=== PATIENT | female | born 1960 | race Caucasian/White ===

== ENCOUNTER → 2016-07-24 | Outpatient (CLI) | payer OTHER ==
--- NOTE | 2016-07-24 14:53 | DX ---
Thoracic Spine, 4 upright views including lateral neutral flexion and extension History: Follow-up fusion, M43.24 Comparison: January 17, 2016 Findings: Thoracic alignment is stable and anatomic. Bilateral posterior transpedicular screws and ve rtical supporting rods between T5 and T11 remain in excellent position. There is no evidence for righ t fracture or screw loosening or uncoupling. Compression abnormalities of T7, T8 and T9 are stable as is a mild thoracic kyphosis. No instability is identified on lateral flexion and extension views. No new compressions have developed above or below the fusion. Impression: Stable x7 months.
== END ==
LOC: FLAB 13:26
PROVIDERS: ATTEND Physician Assistant Surgical
DX: Z98.1 Arthrodesis status (principal)

== ENCOUNTER → 2017-07-27 | Outpatient (CLI) | payer OTHER | LOC: FIMAGING 15:21 → EDSTATUS 15:22 | PROVIDERS: ATTEND Physician Assistant Surgical | DX: Z09 Encounter for follow-up examination after completed treatment for conditions other than malignant neoplasm (principal); Z98.1 Arthrodesis status ==